=== PATIENT | female | born 1995 | race Two or more races ===

== ENCOUNTER 2016-03-20 12:10 | Inpatient (IN) | payer OTHER ==
[2016-03-20 12:29] VITALS: BMI 31.4
[2016-03-20] MEDS ORDERED: OXYTOCIN IN LR 500 ML IV ONE ×2 (13:13→13:21)
[2016-03-20] MEDS ORDERED: LACTATED RINGERS 1,000 ML IV SCH ×2 (13:15→22:43)
[2016-03-20] MEDS ORDERED: LACTATED RINGERS 1,000 ML ONE ×2 (13:20→22:40)
[2016-03-20] MEDS ORDERED: OXYTOCIN 10 UNITS/ML VIAL ONE (13:20)
[2016-03-20] MEDS ORDERED: IV START KIT ONE (13:20)
[2016-03-20] MEDS ORDERED: MINERAL OIL 25 ML BOT ONE (13:21)
[2016-03-20] MEDS ORDERED: PUMP TUBING ONE (13:21)
[2016-03-20] MEDS ORDERED: LIDOCAINE Viscous 2% 15 ML UDCUP ONE (13:21)
[2016-03-20] MEDS ORDERED: LIDOCAINE 1% (PRES FREE) 30 ML VIAL ONE (13:21)
[2016-03-20] MEDS ORDERED: PENICILLIN G POTASSIUM 5 MMU VIAL ONE (13:23)
[2016-03-20] MEDS ORDERED: NS 0.9% (MINI-BAG PLUS) 100 ML IV ONE (13:23)
[2016-03-20] MEDS ORDERED: PENICILLIN G POTASSIUM 5 MMU in NS 0.9% (MINI-BAG PLUS) 100 ML IV ONE (13:30)
[2016-03-20 14:01] LABS: HEMATOCRIT 30.7 % (37.0-47.0); HEMOGLOBIN 10.4 gm/l (12.0-16.0); MEAN CORPUSCULAR HEMOGLOBIN 31.5 pg (27.0-31.0); MEAN CORPUSCULAR HGB CONC 33.9 g/dl (33.0-37.0); RED CELL DISTRIBUTION WIDTH 14.6 % (11.5-14.5)
--- NOTE | 2016-03-20 14:06 | PCMAN ---
OB Admission Note - History : 1 Term: 0 : 0 Abortions (S&E): 0 Livin EDC:: 03/30/16 Gestational Age (weeks): 38 Days (#/7): 4 Admit Cervical Dilation:: 3 cm Admit Cervical Effacement (%):: 90 Admit Station:: 0 Admit Presentaton:: Vtx Membrane Status: Ruptured Rupture (Date): 03/20/16 Rupture (Time): 13:00 (Spontaneous rupture) Membranes Comment:: leaking light mec-stained fluid Labor Onset (Date): 03/20/16 Labor Onset (Time): 10:00 (Irregular all night, stronger at 10) Contractions: Yes Contraction Frequency:: q 3-4 min Heart Rate:: 146 Status:: Cat I EFW:: 8# - Labs Blood Type: A (+) positive Hct/Hgb:: pending Rubella Status: Immune GBS Status: Positive Abnormal Labs: Chlamydia Positive (- per records early preg - screen neg on 01/07 and 03/01) Other Labs:: UDS postive for Marijuana use, last UDS 03/13/16. Patient was given information verbally and in writing discouraging use and educating as to affects on . - Physical Exam General: Afebrile Psych/Mental Status: Mood/Affect Appropriate Neurological: Alert, Oriented x 4 Lungs: Clear to Auscultation Bilaterally Cardiovascular: Regular Rate and Rhythm Extremities: No Edema DTR: Patellar (L): 2+ (Brisk, Normal), Patellar (R): 2+ (Brisk, Normal) - Problems (1) Active labor at term Status: Acute Code: [id number] - Additional Comments Admit in early active labor. GBS protocol initiated with PCN (denies allergy). UDS done on admission. Plans unmedicated , but having some difficulty coping with contractions - will try jacuzzi and support measures. Anticipate
--- NOTE | 2016-03-20 14:51 | PDOC36 ---
Provider Note Subject: CNM Labor Progress Note Note: Has had first dose of PCN. Has tried jacuzzi and labor support measures, now requesting epidural. Cervix 100%/4/0 and softer. FHR still cat 1, vital signs stable, afebrile. A: Entering active labor, requesting epidural P: Orders given for epidural. Continue expectant management, GBS prophyllaxis. Consider pitocin if UC's space out with epidural.
[2016-03-20] MEDS ORDERED: FENTANYL/ROPIVACAINE EPIDURAL 250 ML EP ONE (15:02)
[2016-03-20] MEDS ORDERED: EPIDURAL PUMP SET ONE (15:03)
[2016-03-20] MEDS ORDERED: EPIDURAL PROCEDURE TRAY ONE (15:24)
[2016-03-20 15:25] LABS: AMPHETAMINES/METHAMPHETAMINES NEGATIVE (NEGATIVE); COCAINE NEGATIVE (NEGATIVE); MARIJUANA POSITIVE (NEGATIVE); METHADONE NEGATIVE (NEGATIVE); OPIATES NEGATIVE (NEGATIVE); TRICYCLIC ANTIDEPRESSANTS NEGATIVE (NEGATIVE)
[2016-03-20] MEDS: LACTATED RINGERS 1,000 ML IV PRN ×2 (15:37→18:11)
[2016-03-20] MEDS ORDERED: LACTATED RINGERS 500 ML IV PRN (16:16)
[2016-03-20] MEDS ORDERED: METOCLOPRAMIDE HCL 5 MG/ML 2ML VIAL IV PRN (16:16)
[2016-03-20] MEDS ORDERED: DIPHENHYDRAMINE HCL 50 MG/1 ML VIAL IV PRN (16:16)
[2016-03-20] MEDS ORDERED: NALOXONE HCL 0.4 MG/ML VIAL IV PRN (16:16)
[2016-03-20] MEDS ORDERED: EPHEDRINE SULFATE 50 MG/ML 1ML VIAL IV PRN (16:16)
[2016-03-20] MEDS ORDERED: ONDANSETRON 4 MG/2ML 2 ML VIAL IV PRN (16:16)
[2016-03-20] MEDS ORDERED: SODIUM CHLORIDE 0.9% 500 ML IV PRN (16:16)
[2016-03-20] MEDS ORDERED: NALBUPHINE HCL 20 MG/ML AMP IV PRN (16:16)
[2016-03-20] MEDS ORDERED: PENICILLIN G 3 MIL UNIT PREMIX 50 ML IV ONE (17:24)
[2016-03-20] MEDS ORDERED: PENICILLIN G 3 MIL UNIT PREMIX 3 MMU in Premix (D5W) 50 ml 1 EACH IV SCH (17:30)
[2016-03-20] MEDS: LACTATED RINGERS 1,000 ML IV SCH (17:36)
[2016-03-20] MEDS ORDERED: MISOPROSTOL 200 MCG TABLET PO ONE (19:16)
[2016-03-20] MEDS ORDERED: LIDOCAINE 1% (PRES FREE) 30 ML VIAL PF ONE (19:22)
[2016-03-20] MEDS ORDERED: LANOLIN 50 APPLIC/7G TUBE TP PRN (19:59)
[2016-03-20] MEDS ORDERED: BENZOCAINE/MENTHOL 60 APPLIC/BOT TP PRN (19:59)
[2016-03-20] MEDS ORDERED: CALCIUM CARBONATE 500 MG TAB.CHEW PO PRN (19:59)
[2016-03-20] MEDS ORDERED: MAGNESIUM HYDROXIDE 30 ML UDCUP PO PRN (19:59)
[2016-03-20] MEDS ORDERED: ACETAMINOPHEN 500 MG TABLET PO ONE (20:09)
[2016-03-20] MEDS ORDERED: FERROUS SULFATE (65 Fe) 325 MG TABLET PO SCH (21:00)
[2016-03-20] MEDS: IBUPROFEN 800 MG TABLET PO PRN (21:10)
--- NOTE | 2016-03-20 21:14 | PCMDEL ---
Delivery Note - Labor 1st stage (hr/min):: 8hr 26 min 2nd stage (hr/min):: 23 mins 3rd stage (hr/min):: 5 mins Total (hr/min):: 8 hr 54 mins Pushed (hr/min):: 17 mins - Delivery Delivery (Date): 03/20/16 Delivery (Time): 18:49 Infant Gender: Female Presentation: Cephalic Position: OA Umbilical Cord: 3 Vessel Delayed Cord Clamping:: > 3 min 1 Minute Total: 9 5 Minute Total: 9 Placenta:: grossly intact, Shultze EBL:: 650 Perineum:: intact perineum, right labial laceration, repaired with 4-0 chromic Suture:: 4-0 chromic Anesthesia/Meds:: epidural for labor and lidocaine for repair Length ROM:: 5hr 49 mins Comments:: Delivery Note Stage 1: Marya is a 20yo who presented in L&D in in latent labor and SROM at 1300 with meconium stained amniotic fluid during triage. She was admitted and PCN prophylaxis was initiated. She labored with support from her partner and her family, then in the [facility]. She then requested an epidural for pain relief. Her labor progressed well throughout the afternoon, and was found to be complete at 1826. She had a history of using marijuana in and a positive UDS for marijuana only on admit. GBS pos and PCN x 2doses provided. FHTs remained Cat 1 throughout labor. Stage 2: ELianed pushed very effectively with contractions. of a viable female , OA to CARLIE Shoulders easily delivered with maternal effort and a compound posterior hand was noted. No nuchal cord. Infant placed immediately on maternal abdomen, dried and stimulated with vigorous response. Apgars 9,9 Cord clamping delayed and cut by the father at 3 minutes. AMTSL of IV Pitocin initiated. Stage 3: Placenta showed spontaneous signs of separation and was delivered by maternal effort at 5 mins. Grossly intact, Shultze. Fundus noted to be firm and 2 FB below the U. Cord blood obtained. Perineum inspected and found to be intact, however a right labial laceration was noted to be actively bleeding. With pressure held on the laceration, more bleeding was noted from another source. The uterus was noted to be boggy, a 50cc clot was expulsed with fundal massage and the uterus firmed up again. While initiating repair of the lac, more bleeding was noted and the uterus was noted to be boggy again. With more fundal massage and 600mcg of misoprostol, the bleeding subsided. The bleeding vessel in the laceration was tied off and the laceration repaired with 4-0 chromic and found to be hemostatic. One more period of atony was noted that resolved well with increasing the rate of the Pitocin and maintaining fundal massage for several minutes. Over the next 10 minutes, no more brisk bleeding, clots or gushes were noted even with vigorous fundal massage. Bleeding was now WNL. The vaginal vault was then inspected thoroughly once more with the aid of a flat speculum and no other tears or additional bleeding was noted. Post delivery pause done and count correct. Baby latched on breast within 30 minutes after and nursed well. EBL 650mL Mom and baby in good condition,maintaining skin to skin, and bonding well. Immediate : At approximately 1 hour , Marya developed a temperature of 102.2F which was promptly treated with 1000mg Tylenol, likely to be the result of the SL misoprostol. During pushing and the initial 2 hours , maternal BPs were noted to be elevated from 141/79 to 164/93, with the most recent BP 136/83. Marya feels well, denies CHAMORRO's visual changes and epigastric changes. No edema noted. Her platelet count on admission was 407. Plan to monitor BPs and vitals closely, drawing PI[facility] labs now.
[2016-03-20 21:56] LABS: CREATININE,RANDOM URINE 79 mg/dL
[2016-03-20 22:00] LABS: HEMATOCRIT 24.7 % (37.0-47.0); HEMOGLOBIN 8.6 gm/l (12.0-16.0); MEAN CELL VOLUME 91.5 fl (81.0-99.0); MEAN CORPUSCULAR HEMOGLOBIN 31.9 pg (27.0-31.0); MEAN CORPUSCULAR HGB CONC 34.8 g/dl (33.0-37.0); RED CELL DISTRIBUTION WIDTH 14.7 % (11.5-14.5)
[2016-03-20 22:11] LABS: ALBUMIN 2.6 gm/dL (3.5-5.7); CALCIUM 7.8 mg/dL (8.6-10.3)
--- NOTE | 2016-03-20 22:57 | PDOC36 ---
Provider Note Subject: Note Note: S: Marya says that she has had mild abdominal pain with . She denies CHAMORRO's visual changes, or epigastric pain. O: VS BP 153/73 HR 102 T Laboratory Results - last 24 hr 03/20/16 03/20/16 03/20/16 13:35 14:12 21:25 WBC 13.2 H RBC 3.30 L Hgb 10.4 L Hct 30.7 L MCV 93.0 MCH 31.5 H MCHC 33.9 RDW 14.6 H Plt Count 407 H Sodium Potassium Chloride Carbon Dioxide Anion Gap BUN Creatinine Estimated GFR BUN/Creatinine Ratio Glucose Calcium Total Bilirubin AST ALT Alkaline Phosphatase Total Protein Albumin Globulin Albumin/Globulin Ratio Ur Random Creatinine 79 U Random Total Protein 27 Protein/Creatinin Ratio 342 Urine Opiates Screen Negative Urine Methadone Screen Negative Ur Barbiturates Screen Negative Ur Tricyclics Screen Negative U Amphetamin/Meth Scrn Negative U Benzodiazepines Scrn Negative Urine Cocaine Negative U Marijuana (THC) Screen Positive H 03/20/16 21:40 WBC 19.3 H RBC 2.70 L Hgb 8.6 L Hct 24.7 L MCV 91.5 MCH 31.9 H MCHC 34.8 RDW 14.7 H Plt Count 336 Sodium 130 L Potassium 3.7 Chloride 103 Carbon Dioxide 20 L Anion Gap 11 BUN 9 Creatinine 0.5 L Estimated GFR 157 H BUN/Creatinine Ratio 18 Glucose 84 Calcium 7.8 L Total Bilirubin 0.3 AST 21 ALT 8 Alkaline Phosphatase 150 H Total Protein 5.1 L Albumin 2.6 L Globulin 2.5 Albumin/Globulin Ratio 1.0 Ur Random Creatinine U Random Total Protein Protein/Creatinin Ratio Urine Opiates Screen Urine Methadone Screen Ur Barbiturates Screen Ur Tricyclics Screen U Amphetamin/Meth Scrn U Benzodiazepines Scrn Urine Cocaine U Marijuana (THC) Screen A: Delivered IUP at 38w4d Mild Preeclampsia Anemia Tachycardia P: Monitor BP and vitals closely, monitor for severe range symptoms 1000mL LR bolus Dr. richards notified Will consult if severe range features noted. CBC in the AM.
--- NOTE | 2016-03-21 01:03 | PDOC36 ---
Provider Note Subject: Note Note: S: Called in to evaluate patient by RN for brisk bleeding. Rn states that when the patient go up to void that there was minimal bleeding on the pad, but during the void brisk bleeding began that seemed to be coming from the area of the vaginal laceration that had been repaired earlier. She called me in to evaluate the lac. The patient denies dizziness or feeling faint. O: The patient was brought to the bed, placed in a reclining position. Fundus firm , 3 below the U, no bleeding or clots expressed with fundal massage. On inspection the right-sided laceration is well approximated and hemostatic. The vaginal vault was inspected thoroughly by myself and Dr Rob. No further brisk bleeding was noted. A: VSS In discussion with Dr. Rob, it is possible that there is a venous vessel that is occasionally bleeding. An additional Q150mL of blood loss measured and weighed, bringing total EBL to 800mL P: Closely monitor bleeding, if another episode occurs, consider vaginal packing to assist with clotting. repeat CBC in the AM.
[2016-03-21] MEDS: LACTATED RINGERS 1,000 ML IV SCH (01:38)
[2016-03-21] MEDS ORDERED: FENTANYL/ROPIVACAINE EPIDURAL 250 ML EP SCH (06:00)
[2016-03-21 07:18] LABS: HEMATOCRIT 22.1 % (37.0-47.0); HEMOGLOBIN 7.6 gm/l (12.0-16.0)
[2016-03-21] MEDS: IBUPROFEN 800 MG TABLET PO PRN ×3 (07:28→22:15)
[2016-03-21] MEDS: DOCUSATE SODIUM 100 MG CAPSULE PO SCH (08:05)
[2016-03-21] MEDS: ACETAMINOPHEN 325 MG TABLET PO PRN ×3 (08:05→18:32)
[2016-03-21] MEDS ORDERED: PNEUMOCOCCAL 23-VAL P-SAC VAC 0.5 ML VIAL SUB-Q V ONE (09:00)
[2016-03-21] MEDS ORDERED: PRENATAL VIT/FE FUMARATE/FA 1 TABLET PO SCH (09:00)
--- NOTE | 2016-03-21 09:27 | PDOC44 ---
- Subjective Day: 1 S: Marya feels well this morning. Is tired and hoping to nap between feeds. ENjoys skin to skin. Reports that her bleeding has remained light, that she has been able to void without any further episodes of brisk bleeding. She is feeling somewhat painful. She has only been taking ibuprofen. Denies dizziness, lightheadedness, is ambulating without difficulty. Denies CHAMORRO's visual changes, epigastric pain. Reports Flatus, Reports Pain Tolerable, Reports (Was painful with only ibuprofen. Adding tylenol, will assess later today for need for additional pain meds.), Reports Lochia Light - Objective Temp Pulse Resp BP Pulse Ox 98.5 F 72 16 107/59 03/21/16 07:18 03/21/16 07:18 03/21/16 07:18 03/21/16 07:18 Lab Results 03/21/16 03/20/16 03/20/16 06:20 21:40 13:35 WBC 19.3 H 13.2 H RBC 2.70 L 3.30 L Hgb 7.6 L 8.6 L 10.4 L Hct 22.1 L 24.7 L 30.7 L Plt Count 336 407 H Creatinine 0.5 L AST 21 ALT 8 03/20/16 03/20/16 03/20/16 21:40 14:12 13:35 MCH 31.9 H 31.5 H RDW 14.7 H 14.6 H Sodium 130 L Carbon Dioxide 20 L Estimated GFR 157 H Calcium 7.8 L Alkaline Phosphatase 150 H Total Protein 5.1 L Albumin 2.6 L U Marijuana (THC) Screen Positive H Current Medications Generic Name Dose Route Start Last Admin Trade Name Freq PRN Reason Stop Dose Admin Acetaminophen 325 - 650 mg 03/20/16 19:59 03/21/16 08:05 Tylenol PO 650 mg Q4H PRN Administration Pain (Mild) Benzocaine/Menthol 1 applic 03/20/16 19:59 03/20/16 22:50 Dermoplast TP 1 bot PRN PRN Administration Patient Comfort Calcium Carbonate/Glycine 500 - 1,000 mg 03/20/16 19:59 Tums PO BID PRN Indigestion Docusate Sodium 100 mg 03/21/16 09:00 03/21/16 08:05 Colace PO 100 mg DAILY MARIA DE JESUS Administration Emollient Ointment 1 applic 03/20/16 19:59 [id number] TP PRN PRN sore nipples Ibuprofen 800 mg 03/20/16 19:59 03/21/16 07:28 Motrin PO 800 mg Q6H PRN Administration Pain (Mild) Magnesium Hydroxide 30 ml 03/20/16 19:59 Milk Of Magnesia PO BEDTIME PRN Constipation Sodium Chloride 10 ml 03/20/16 19:59 03/21/16 00:15 Normal Saline 10ml Flush IV 10 ml PRN PRN Administration IV Flush Sodium Chloride 10 ml 03/21/16 01:00 03/21/16 01:29 Normal Saline 10ml Flush IV Not Given Q8HR [facility] - Physical Exam General: Afebrile Psych/Mental Status: Mood/Affect Appropriate, Judgment/Insight Intact, Bonding Well Neurological: Grossly Intact, Alert, Oriented x 4 HEENT: Atraumatic Lungs: Clear to Auscultation Bilaterally Cardiovascular: Regular Rate and Rhythm, Normal S1, Normal S2 Breast: Soft, Skin intact, Nipples Intact Fundus: Firm, Below Umbilicus Genitourinary: Normal Female Genitalia Lochia: Light Extremities: Full ROM Skin: Normal Color Other Findings: Patient has remained normotensive throughout the night - Problems:Assessment/Plan (1) care following vaginal delivery Status: Acute Assessment/Plan: A: Delivered PP day 1 Lochia appropriate without further episodes of brisk bleeding Anemia, most recent CBC 7.6/22.1, asymptomatic , usual 1st time mom challenges with latch Posttpartum pre-eclampsia Bonding well pre-eclampsia, VSS and WNL P: and RN support with CBC again this evening and tomorrow in the AM, continue monitoring for symptoms , may consider transfusion if she becomes symptomatic or CBC continues to drop Continue to monitor BP while in unit, follow up outpatient with BP check a few days after discharge. Plan to DC to home care tomorrow if stable
[2016-03-21] MEDS ORDERED: LACTATED RINGERS 1,000 ML ONE (15:28)
[2016-03-21] MEDS: FERROUS SULFATE (65 Fe) 325 MG TABLET PO SCH (21:54)
[2016-03-21] MEDS: HYDROCODONE/ACETAMINOPHEN 5/325MG TABLET PO PRN (22:50)
[2016-03-22] MEDS: HYDROCODONE/ACETAMINOPHEN 5/325MG TABLET PO PRN ×3 (02:16→14:07)
[2016-03-22] MEDS: IBUPROFEN 800 MG TABLET PO PRN ×2 (04:36→14:07)
[2016-03-22 07:11] LABS: HEMATOCRIT 24.6 % (37.0-47.0); HEMOGLOBIN 8.2 gm/l (12.0-16.0); MEAN CELL VOLUME 93.9 fl (81.0-99.0); MEAN CORPUSCULAR HEMOGLOBIN 31.3 pg (27.0-31.0); MEAN CORPUSCULAR HGB CONC 33.3 g/dl (33.0-37.0); RED CELL DISTRIBUTION WIDTH 15.5 % (11.5-14.5)
[2016-03-22] MEDS: DOCUSATE SODIUM 100 MG CAPSULE PO SCH (08:27)
[2016-03-22] MEDS: FERROUS SULFATE (65 Fe) 325 MG TABLET PO SCH (08:27)
--- NOTE | 2016-03-22 12:09 | PDOC39B ---
Hospital Course: ADMIT DATE: 03/20/16 DISCHARGE DATE: 03/22/16 ADMISSION DIAGNOSES: Active Labor PROCEDURES: HISTORY OF PRESENT ILLNESS: 20 year old now G1 T0 L1 at 38 weeks 4 days presenting with active labor. HOSPITAL COURSE: Stage 1: Maray is a 20yo who presented in L&D in in latent labor and SROM at 1300 with meconium stained amniotic fluid during triage. She was admitted and PCN prophylaxis was initiated. She labored with support from her partner and her family, then in the [facility]. She then requested an epidural for pain relief. Her labor progressed well throughout the afternoon, and was found to be complete at 1826. She had a history of using marijuana in and a positive UDS for marijuana only on admit. GBS pos and PCN x 2doses provided. FHTs remained Cat 1 throughout labor. Stage 2: ELianed pushed very effectively with contractions. of a viable female , OA to CARLIE Shoulders easily delivered with maternal effort and a compound posterior hand was noted. No nuchal cord. placed immediately on maternal abdomen, dried and stimulated with vigorous response. Apgars 9,9 Cord clamping delayed and cut by the father at 3 minutes. AMTSL of IV Pitocin initiated. Stage 3: Placenta showed spontaneous signs of separation and was delivered by maternal effort at 5 mins. Grossly intact, Shultze. Fundus noted to be firm and 2 FB below the U. Cord blood obtained. Perineum inspected and found to be intact, however a right labial laceration was noted to be actively bleeding. With pressure held on the laceration, more bleeding was noted from another source. The uterus was noted to be boggy, a 50cc clot was expulsed with fundal massage and the uterus firmed up again. While initiating repair of the lac, more bleeding was noted and the uterus was noted to be boggy again. With more fundal massage and 600mcg of misoprostol, the bleeding subsided. The bleeding vessel in the laceration was tied off and the laceration repaired with 4-0 chromic and found to be hemostatic. One more period of atony was noted that resolved well with increasing the rate of the Pitocin and maintaining fundal massage for several minutes. Over the next 10 minutes, no more brisk bleeding, clots or gushes were noted even with vigorous fundal massage. Bleeding was now WNL. The vaginal vault was then inspected thoroughly once more with the aid of a flat speculum and no other tears or additional bleeding was noted. Post delivery pause done and count correct. Baby latched on breast within 30 minutes after and nursed well. EBL 650mL Mom and baby in good condition,maintaining skin to skin, and bonding well. Immediate : At approximately 1 hour , Marya developed a temperature of 102.2F which was promptly treated with 1000mg Tylenol, likely to be the result of the SL misoprostol. During pushing and the initial 2 hours , maternal BPs were noted to be elevated from 141/79 to 164/93, with the most recent BP 136/83. Marya feels well, denies CHAMORRO's visual changes and epigastric changes. No edema noted. Her platelet count on admission was 407. Plan to monitor BPs and vitals closely, drawing [facility] labs now. Recovery: Throughout her recovery she felt stable when up to void ad manuel, denies lightheadedness or dizziness, ringing in her ears. Reviewed postartum anemia and importance of good hydration and nutrition. Her blood pressures have remained stable during her recovery. On PPD #2 she reported a long breastfeed with minimal difficulty with latch. She does have follow up visit scheduled and is aware of support groups. Her pain is controlled with ibuprofen, and norco, knows she can substitute norco for tylenol. Her lochia is minimal and stable. She is bonding well and is ready for discharge. By day of discharge the patient is stable, well and ready to go home. - Physical Exam Vital Signs: Temp Pulse Resp BP Pulse Ox 97.7 F 76 16 129/74 03/22/16 08:15 03/22/16 08:15 03/22/16 08:15 03/22/16 08:15 General: Afebrile Psych/Mental Status: Mood/Affect Appropriate, Judgment/Insight Intact, Bonding Well Neurological: Grossly Intact, Alert, Oriented x 4, Normal Gait, Normal Speech Lungs: Clear to Auscultation Bilaterally Cardiovascular: Regular Rate and Rhythm Breast: Soft, Skin intact, Nipples Intact Fundus: Firm, Midline, Below Umbilicus Genitourinary: Normal Female Genitalia Extremities: Full ROM Skin: Normal Color, Warm, Dry, Intact Wound: Well Approximated (vaginal/perineal lac hemostatic, well approximated, neg erythema) - Discharge Diagnosis (1) care following vaginal delivery Status: Acute Assessment/Plan: A: PPD #2 s/p exclusively Anemia, asymptomatic pre-clampsia now normotensive, and VSS and WNL stable and appropriate for discharge P: Reviewed discharge teaching, warning s/s Take FE bid, and vitamin at lunch Encouraged rest, skin to skin, and Plans Nexplanon at 6wk visit RTC in 3 d for BP check and 2wks and 6wks (2) (normal spontaneous vaginal delivery) Status: Acute Assessment/Plan: A: PPD #2 s/p exclusively Anemia, asymptomatic pre-clampsia now normotensive, and VSS and WNL stable and appropriate for discharge P: Reviewed discharge teaching, warning s/s Take FE bid, and vitamin at lunch Encouraged rest, skin to skin, and Plans Nexplanon at 6wk visit RTC in 3 d for BP check and 2wks and 6wks - Discharge Plan Condition: Stable Disposition: Home Instruction Forms: Vaginal Discharge Instructions Additional Instructions: Midwifery 'After the ' handout given to patient.[facility] appointment for 03/25/16, at 4pm. Bring baby ready to nurse. Come to the [facility] to register Prescriptions: Docusate Sodium [Colace] 250 mg PO DAILY PRN #14 cap PRN Reason: Constipation FERROUS SULFATE (65 Fe) [IRON FERROUS SULFATE 325 MG TABLET (SHF)] 325 mg PO BID #60 tablet Hydrocodone Bit/Acetaminophen [NORCO 5/325 MG TABLET (SHF)] 1 - 2 tab PO Q4H PRN #20 tablet PRN Reason: Pain Discharge Medications: Take iron twice a day, morning and evening, and vitamin at lunch. Take ibuprofen up to 800mg q 6hours as needed for pain. Follow-Up: JOVI Lee [Outside] Melissa-Shruthi Hannah CNM [Primary Care Provider] - 04/04/16 1:00 pm
[2016-03-22 14:15] VITALS: BP 122/75
== END 2016-03-22 15:10 | disposition home or self-care (01) | DRG 774 ==
LOC: FBCOUT 12:10 → FBC 12:16 → FBCOUT 13:13 → FBC 13:14
PROVIDERS: ADMIT Advanced Practice Midwife; ATTEND Advanced Practice Midwife
PROC: 10E0XZZ Delivery of Products of Conception, External Approach (ICD-10-PCS; principal; 2016-03-20)
PROC: 0HQ9XZZ Repair Perineum Skin, External Approach (ICD-10-PCS; 2016-03-20)
DX: O77.0 Labor and delivery complicated by meconium in amniotic fluid (principal); O98.32 Other infections with a predominantly sexual mode of transmission complicating childbirth; O99.324 Drug use complicating childbirth; O86.4 Pyrexia of unknown origin following delivery; A56.8 Sexually transmitted chlamydial infection of other sites; F12.90 Cannabis use, unspecified, uncomplicated; O70.0 First degree perineal laceration during delivery; O99.824 Streptococcus B carrier state complicating childbirth; O14.94 Unspecified pre-eclampsia, complicating childbirth; Z3A.38 38 weeks gestation of pregnancy; Z37.0 Single live birth

== ENCOUNTER 2016-03-28 19:09 | Emergency (ER) | payer OTHER ==
[2016-03-28] MEDS ORDERED: SODIUM CHLORIDE 0.9% 1,000 ML ONE (20:31)
[2016-03-28] MEDS ORDERED: KETOROLAC TROMETHAMINE 30 MG/ML 1 ML VIAL ONE (20:31)
[2016-03-28 20:43] LABS: ABSOLUTE NEUTROPHIL COUNT 4.8 K/mm3 (1.8-7.7); BASO % 0.4 % (0.2-1.0); EOS # 0.1 (0.0-0.5); EOS % 1.5 % (0.9-2.9); HEMATOCRIT 29.1 % (37.0-47.0); HEMOGLOBIN 9.3 gm/l (12.0-16.0); IMM NEUT% 0.2 % (0-1); LYMPH # 2.7 (1.0-4.8); LYMPH % 33.2 % (15-45); MEAN PLATELET VOLUME 8.7 fl (7.4-10.4); MONO # 0.5 (0.0-0.8); NEUT % 58.7 % (43-75); PLATELET COUNT 639 K/mm3 (130-400); RED CELL DISTRIBUTION WIDTH 16.5 % (11.5-14.5)
[2016-03-28 21:00] LABS: ALBUMIN 3.3 gm/dL (3.5-5.7); CALCIUM 8.9 mg/dL (8.6-10.3)
[2016-03-28 21:21] LABS: URINE BILIRUBIN NEGATIVE (NEGATIVE); URINE BLOOD TRACE (NEGATIVE); URINE GLUCOSE (UA) NEGATIVE (NEGATIVE); URINE LEUKOCYTE ESTERASE NEGATIVE (NEGATIVE); URINE NITRITE NEGATIVE (NEGATIVE); URINE PROTEIN NEGATIVE (NEGATIVE); URINE UROBILINOGEN NORMAL (0-1 mg/dl)
[2016-03-28 21:28] LABS: URINE APPEARANCE CLEAR; URINE COLOR YELLOW
[2016-03-28 21:31] LABS: URINE WBC NEG /hpf
[2016-03-28 21:32] LABS: URINE BACTERIA RARE; URINE EPITHELIAL CELLS 0 /hpf
[2016-03-28] MEDS ORDERED: OXYTOCIN IV SCH (21:45)
[2016-03-28] MEDS ORDERED: SODIUM CHLORIDE 0.9% IV SCH (21:45)
[2016-03-28] MEDS ORDERED: METHYLERGONOVINE MALEATE 0.2 MG/ML 1ML AMP IM ONE (21:45)
== END 2016-03-29 00:44 | disposition home or self-care (01) ==
LOC: ED 19:09
DX: O72.2 Delayed and secondary postpartum hemorrhage (principal)
CPT/HCPCS: 83690; 85025; 80053; 85045; 81001; 86901; 86850 ×3; 96375; 99284 ×2; 96372; 96361 ×2; 96365; 96366; 51701 ×2; J2210; J2590; J1885; J7040; J7030

== ENCOUNTER 2016-06-20 19:57 | Emergency (ER) | payer SELFPAY ==
[2016-06-20] MEDS ORDERED: ACETAMINOPHEN 500 MG TABLET ONE (23:08)
== END 2016-06-20 23:23 | disposition home or self-care (01) ==
LOC: ED 19:57
DX: S61.210A Laceration without foreign body of right index finger without damage to nail, initial encounter (principal); J45.909 Unspecified asthma, uncomplicated; W26.0XXA Contact with knife, initial encounter; Y92.009 Unspecified place in unspecified non-institutional (private) residence as the place of occurrence of the external cause